=== PATIENT | male | born 1995 | race Two or more races ===

== ENCOUNTER 2018-10-12 21:21 | Emergency (ER) | payer OTHER ==
[~2018-10-12] VITALS: Ht 170.2 cm; Wt 86.2 kg
[2018-10-12 21:21] VITALS: BP 134/80
--- NOTE | 2018-10-12 21:37 | ED.ADGEN ---
Past History Past Medical History: Sciatica Adult General Chief Complaint Chief Complaint ".. I was in PT about a week to two weeks ago.. and injury to my back.. I ve hurt it before.. but the spasms eventually quit... I seen my primary care.. and they thought it was spasm and sciatica.... but I ve not gotten better... 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 Patient has past history of periodic back spasms and injury. But this episode has not resolved with normal therapy. Patient previously evaluated in primary care felt that his symptoms were sciatica. Pain is localized in mid spine and left paraspinal muscles. Straight leg lift exacerbates pain. Patient denies any history of fever, chills, immunosuppression, or recent travel. Patient has been assigned to [place] for the past year. No specific ill contacts. Patient denies any problems with defecation or urination. Does have findings of muscle spasm particularly on left. Does have erythema from use of heating pad. DTRs +2 patella. Patient is ambulatory with minimal gait abnormalities. No saddle loss reported. Review of Systems Review of Systems Constitutional: Denies fever or chills [] Eyes: Denies change in visual acuity, redness, or eye pain [] HENT: Denies nasal congestion or sore throat [] Respiratory: Denies cough or shortness of breath [] Cardiovascular: No additional information not addressed in HPI [] GI: Denies abdominal pain, nausea, vomiting, bloody stools or diarrhea [] : Denies dysuria or hematuria [] Musculoskeletal: Complaints of lumbar sacral back pain Integument: Denies rash or skin lesions [] Neurologic: Denies headache, focal weakness or sensory changes [] Endocrine: Denies polyuria or polydipsia [] All other systems were reviewed and found to be within normal limits, except as documented in this note. Family History Family History Noncontributory Current Medications Current Medications Current Medications Medications (Trade) Dose Ordered Sig/Kyle Start Time Stop Time Status Last Admin Dose Admin Ketorolac Tromethamine (Toradol Im) 60 mg 1X ONCE 10/12/18 21:45 10/12/18 22:08 DC 10/12/18 22:05 60 MG Methylprednisolone Acetate (DEPO-Medrol IM) 40 mg 1X ONCE 10/12/18 21:45 10/12/18 22:08 DC 10/12/18 22:05 40 MG Orphenadrine Citrate (Norflex) 60 mg 1X ONCE 10/12/18 21:45 10/12/18 22:08 DC 10/12/18 22:06 60 MG Nursing for home meds Allergies Allergies Allergies Coded Allergies Type Severity Reaction Last Updated Verified No Known Drug Allergies 10/12/18 No No known drug allergies Physical Exam Physical Exam Constitutional: Well developed, well nourished, moderate acute distress, non- toxic appearance. [] HENT: Normocephalic, atraumatic, bilateral external ears normal, oropharynx moist, no oral exudates, nose normal. [] Eyes: PERRLA, EOMI, conjunctiva normal, no discharge. [] Neck: Normal range of motion, no tenderness, supple, no stridor. [] Cardiovascular:Heart rate regular rhythm, no murmur [] Lungs & Thorax: Bilateral breath sounds clear to auscultation [] Abdomen: Bowel sounds normal, soft, no tenderness, no masses, no pulsatile masses. [] Skin: Warm, dry, no erythema, no rash. [] Back: Exam as per history of present illness Extremities: No tenderness, no cyanosis, no clubbing, ROM intact, no edema. [] Neurologic: Alert and oriented X 3, normal motor function, normal sensory function, no focal deficits noted. [] Psychologic: Affect normal, judgement normal, mood normal. [] Current Patient Data Vital Signs Vital Signs Date Time Temp Pulse Resp B/P (MAP) Pulse Ox O2 Delivery O2 Flow Rate FiO2 10/12/18 21:21 97.2 75 18 97 Room Air EKG EKG [] Radiology/Procedures Radiology/Procedures [][address] [address] IMAGING REPORT Signed PATIENT: CHINTAN RICHARDSON ACCOUNT: [id number] : 1995 LOCATION: ER AGE: 23 SEX: M EXAM STATUS: REG ER ORD. PHYSICIAN: JONATHAN PA MD REASON: LOWER BACK PAIN. NO SX OR INJURY PROCEDURE: CT LUMBAR SPINE WO CONTRAST Examination: CT LUMBAR SPINE WO CONTRAST History: Lower back pain. No trauma or injury. Comparison/Correlation: None Findings: Axial images of the lumbar spine were obtained without contrast. Sagittal and coronal reformatted images were provided. There is very minimal retrolisthesis of L2 in relation L3 and L3 in relation L4. No significant malalignment. Vertebral body heights and disc spaces are adequate. Concentric disc bulge at L3-4 is noted. Ligamentum flavum hypertrophy is present with moderate spinal canal stenosis. Mild concentric disc bulge at L4-5 is also present with ligamentum flavum hypertrophy and moderate spinal canal stenosis. Central disc protrusion at L5-S1 is present. No spinal canal stenosis. No definite findings of nerve root effacement. No fracture or bony destruction. Visualized retroperitoneal soft tissues are unremarkable. Impression: Concentric disc bulge with moderate spinal canal stenoses at L2-3, L3-4, and L4-5. PQRS Compliance Statement: One or more of the following individualized dose reduction techniques were utilized for this examination: 1. Automated exposure control 2. Adjustment of the mA and/or kV according to patient size 3. Use of iterative reconstruction technique Electronically signed by: Genaro Harper MD (10/12/2018 10:16 PM) [facility] Course & Med Decision Making Course & Med Decision Making Pertinent Labs and Imaging studies reviewed. (See chart for details) Patient use ice packs as needed for spasm. Take Tylenol or ibuprofen for discomfort. For marked discomfort may take Vicoprofen. Take Flexeril 10 mg up to 3 times a day for muscle spasms. Follow-up primary care. Return if any concer ns. Review CT with primary. Consider follow up MRI and Neurosurgery evaluation. [] Final Impression Final Impression 1. Back Pain[] 2. Sciatica 3. Moderated Disc Bulge at 2,3,4, 5, with spinal stenosis Dragon Disclaimer Dragon Disclaimer This electronic medical record was generated, in whole or in part, using a voice recognition dictation system. Discharge Summary Visit Information Final Diagnosis Problems Medical Problems: (1) Sciatica Status: Acute Brief Hospital Course Allergies Allergies Coded Allergies Type Severity Reaction Last Updated Verified No Known Drug Allergies 10/12/18 No Vital Signs Vital Signs Date Time Temp Pulse Resp B/P (MAP) Pulse Ox O2 Delivery O2 Flow Rate FiO2 10/12/18 21:21 97.2 75 18 97 Room Air Brief Hospital Course Mr. Richardson is a 23 old male who presented with sciatica complaints and disc dz 2,3,4,5 with some spinal stenosis. Discharge Information Condition at Discharge: Improved, Stable Disposition/Orders: D/C to Home Dischare Medications Current Medications Ketorolac Tromethamine (Toradol Im) 60 mg 1X ONCE IM Last administered on 10/12/18at 22:05; Admin Dose 60 MG; Start 10/12/18 at 21:45; Stop 10/12/18 at 22:08; Status DC Orphenadrine Citrate (Norflex) 60 mg 1X ONCE IM Last administered on 10/12/18at 22:06; Admin Dose 60 MG; Start 10/12/18 at 21:45; Stop 10/12/18 at 22:08; Status DC Methylprednisolone Acetate (DEPO-Medrol IM) 40 mg 1X ONCE IM Last administered on 10/12/18at 22:05; Admin Dose 40 MG; Start 10/12/18 at 21:45; Stop 10/12/18 at 22:08; Status DC Active Scripts Active Cyclobenzaprine Hcl 10 Mg Tablet 10 Mg PO TIDPRN Hydrocodone-Ibuprofen 7.5-200 (Hydrocodone/Ibuprofen) 1 Each Tablet 1 Tab PO PRN Q6HRS PRN Acetaminophen 500 Mg Tablet 1,000 Mg PO QIDPRN PRN Ibuprofen 400 Mg Tablet 400 Mg PO QIDPRN PRN Dragon Disclaimer This chart was dictated in whole or in part using Voice Recognition software in a busy, high-work load, and often noisy Emergency Department environment. It may contain unintended and wholly unrecognized errors or omissions. JONATHAN PA MD Oct 12, 2018 21:37
[2018-10-12] MEDS ORDERED: methylPREDNISolone ACETATE 40 MG/ML VIAL. IM ONE (21:45)
[2018-10-12] MEDS ORDERED: ORPHENADRINE CITRATE 60 MG/2 ML VIAL. IM ONE (21:45)
[2018-10-12] MEDS ORDERED: KETOROLAC 60 MG/2 ML VIAL. IM ONE (21:45)
[2018-10-12] MEDS ORDERED: IBUP400T18 PO (22:00)
[2018-10-12] MEDS ORDERED: ACET500T68 PO (22:00)
[2018-10-12] MEDS ORDERED: CYCL-331 PO (22:01)
[2018-10-12] MEDS ORDERED: HYDR-1179 PO (22:01)
--- NOTE | 2018-10-12 22:19 | RAD ---
Examination: CT LUMBAR SPINE WO CONTRAST History: Lower back pain. No trauma or injury. Comparison/Correlation: None Findings: Axial images of the lumbar spine were obtained without contrast. Sagittal and coronal reformatted images were provided. There is very minimal retrolisthesis of L2 in relation L3 and L3 in relation L4. No significant malalignment. Vertebral body heights and disc spaces are adequate. Concentric disc bulge at L3-4 is noted. Ligamentum flavum hypertrophy is present with moderate spinal canal stenosis. Mild concentric disc bulge at L4-5 is also present with ligamentum flavum hypertrophy and moderate spinal canal stenosis. Central disc protrusion at L5-S1 is present. No spinal canal stenosis. No definite findings of nerve root effacement. No fracture or bony destruction. Visualized retroperitoneal soft tissues are unremarkable. Impression: Concentric disc bulge with moderate spinal canal stenoses at L2-3, L3-4, and L4-5. PQRS Compliance Statement: One or more of the following individualized dose reduction techniques were utilized for this examination: 1. Automated exposure control 2. Adjustment of the mA and/or kV according to patient size 3. Use of iterative reconstruction technique Electronically signed by: Genaro Harper MD (10/12/2018 10:16 PM) [facility]
== END 2018-10-12 22:55 | disposition home or self-care (01) ==
LOC: ER 21:21
DX: M54.42 Lumbago with sciatica, left side (principal); M48.061 Spinal stenosis, lumbar region without neurogenic claudication; M53.3 Sacrococcygeal disorders, not elsewhere classified
CPT/HCPCS: 72131; 96372; 99284; J1030; J1885; J2360

== ENCOUNTER 2019-01-17 15:33 | Emergency (ER) | payer OTHER ==
[~2019-01-17] VITALS: Ht 177.8 cm; Wt 87.1 kg
[~2019-01-17 15:33] MED LIST: ACET500T68 PO; CYCL-331 PO; HYDR-1179 PO; IBUP400T18 PO
[2019-01-17 15:35] VITALS: BP 129/78
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
== END 2019-01-17 16:28 | disposition home or self-care (01) ==
LOC: ER 15:33
DX: S01.511A Laceration without foreign body of lip, initial encounter (principal); W51.XXXA Accidental striking against or bumped into by another person, initial encounter; Y93.89 Activity, other specified; Y92.89 Other specified places as the place of occurrence of the external cause; Y99.8 Other external cause status
CPT/HCPCS: 12011; 99283

== ENCOUNTER 2019-06-04 12:15 | Emergency (ER) | payer OTHER ==
[~2019-06-04] VITALS: Ht 177.8 cm; Wt 86.3 kg
[2019-06-04 12:15] VITALS: BP 123/62
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
[2019-06-04] MEDS ORDERED: IBUPROFEN 600 MG TABLET. PO ONE (12:45)
--- NOTE | 2019-06-04 12:46 | RAD ---
ANKLE RIGHT 3V History: Pain. Injury. Swelling. Technique: 3 views right ankle. Comparison: None. Findings: Lateral ankle soft tissue swelling. No fracture. Symmetric ankle mortise. Impression: 1. No acute osseous abnormality. 2. Lateral ankle soft tissue swelling. Electronically signed by: Rogelio Vallejo DO (06/04/2019 12:42 PM) [id number]
[2019-06-04] MEDS ORDERED: IBUP800T19 PO (13:03)
== END 2019-06-04 13:10 | disposition home or self-care (01) ==
LOC: ER 12:15
DX: S93.401A Sprain of unspecified ligament of right ankle, initial encounter (principal); X50.9XXA Other and unspecified overexertion or strenuous movements or postures, initial encounter; Y93.89 Activity, other specified; Y92.89 Other specified places as the place of occurrence of the external cause; Y99.0 Civilian activity done for income or pay
CPT/HCPCS: 73610; 99283

== ENCOUNTER 2019-06-12 19:53 | Emergency (ER) | payer OTHER ==
[~2019-06-12] VITALS: Ht 177.8 cm; Wt 88.6 kg
[~2019-06-12 19:53] MED LIST changes: +IBUP800T19 PO
--- NOTE | 2019-06-12 20:04 | PHYS DOC ---
Past History Past Medical History: No Pertinent History, Sciatica Past Surgical History: Other Additional Past Surgical Histo: WISDON TEETH Smoking: Non-smoker Alcohol Use: None Drug Use: None Adult General Chief Complaint Chief Complaint: SKIN RASH/ABSCESS.." I think .. I got hives from my new lanundry detergent... 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 Hives after changed his laundry detergent. Patient does not have hives in the past. No other known exposures. No recent travel or TDY assignments .Pt. follows at [place]. He vaccinations. No history immunosuppression. No history of inflammatory or lymphoma with family members or himself. Review of Systems Review of Systems Constitutional: Denies fever or chills [] Eyes: Denies change in visual acuity, redness, or eye pain [] HENT: Denies nasal congestion or sore throat [] Respiratory: Denies cough or shortness of breath [] Cardiovascular: No additional information not addressed in HPI [] GI: Denies abdominal pain, nausea, vomiting, bloody stools or diarrhea [] : Denies dysuria or hematuria [] Musculoskeletal: Denies back pain or joint pain [] Integument: Complaints of hives Neurologic: Denies headache, focal weakness or sensory changes [] Endocrine: Denies polyuria or polydipsia [] All other systems were reviewed and found to be within normal limits, except as documented in this note. Family History Family History Noncontributory Current Medications Current Medications See nursing for home meds Allergies Allergies Allergies Coded Allergies Type Severity Reaction Last Updated Verified No Known Drug Allergies 10/12/18 No Physical Exam Physical Exam Constitutional: Well developed, well nourished, no acute distress, non-toxic appearance. [] HENT: Normocephalic, atraumatic, bilateral external ears normal, oropharynx moist, no oral exudates, nose normal. [] Eyes: PERRLA, EOMI, conjunctiva normal, no discharge. [] Neck: Normal range of motion, no tenderness, supple, no stridor. [] Cardiovascular:Heart rate regular rhythm, no murmur [] Lungs & Thorax: Bilateral breath sounds clear to auscultation [] Abdomen: Bowel sounds normal, soft, no tenderness, no masses, no pulsatile masses. [] Skin: Warm, dry, no erythema, extensive hives-like rash . Back: No tenderness, no CVA tenderness. [] Extremities: No tenderness, no cyanosis, no clubbing, ROM intact, no edema. [] No adenopathy appreciated Neurologic: Alert and oriented X 3, normal motor function, normal sensory function, no focal deficits noted. [] Psychologic: Affect normal, judgement normal, mood normal. [] EKG EKG [] Radiology/Procedures Radiology/Procedures [] Course & Med Decision Making Course & Med Decision Making Pertinent Labs and Imaging studies reviewed. (See chart for details) Patient follow-up primary care. Patient take prednisone 50 mg day for 5 days. Patient takes Zantac 150 mg twice a day. Patient may use Benadryl 25-50 mg 4 times a day for itching. Patient uses MDI 2 puffs 4 times a day. Patient return if any concerns. When patient stopped using laundry detergent if it is a suspect causes of his rash or hives. Impression: 1. Hives- Suspect allergic reaction. [] Dragon Disclaimer Dragon Disclaimer This electronic medical record was generated, in whole or in part, using a voice recognition dictation system. Departure Departure: Disposition: 01 HOME/RESIDENCE PRIOR TO ADM Condition: STABLE Referrals: PCP,UNKNOWN (PCP) Scripts Diphenhydramine Hcl (BENADRYL ALLERGY) 25 Mg Tablet 50 MG PO QIDPRN PRN for hives for 10 Days, TAB Prov: JONATHAN PA MD 06/12/19 Albuterol Sulfate (VENTOLIN HFA INHALER) 18 Gm Hfa.aer.ad 2 PUFF IH PRN Q4HRS PRN for FOR ASTHMA for 30 Days, INHALER 0 Refills Prov: JONATHAN PA MD 06/12/19 Ranitidine Hcl (ZANTAC) 150 Mg Tablet 150 MG PO BID for Hives for 10 Days, #20 TAB Prov: JONATHAN PA MD 06/12/19 Prednisone (PREDNISONE) 50 Mg Tablet 50 MG PO DAILY for Hives for 5 Days, #5 TAB Prov: JONATHAN PA MD 06/12/19 JONATHAN PA MD Jun 12, 2019 20:04
[2019-06-12 20:07] VITALS: BP 131/79
[2019-06-12] MEDS ORDERED: PRED50TA PO (21:27)
[2019-06-12] MEDS ORDERED: ALBU2.5V8 IH (21:27)
[2019-06-12] MEDS ORDERED: DIPH25TA64 PO (21:27)
[2019-06-12] MEDS ORDERED: RANI-376 PO (21:27)
[2019-06-12] MEDS ORDERED: methylPREDNISolone ACETATE 40 MG/ML VIAL. IM ONE (21:30)
[2019-06-12] MEDS ORDERED: FAMOTIDINE 20 MG TABLET PO ONE (21:30)
== END 2019-06-12 22:03 | disposition home or self-care (01) ==
LOC: ER 19:53
DX: L50.9 Urticaria, unspecified (principal)
CPT/HCPCS: 96372; 99283; J1030